=== PATIENT | male | born 1990 | race Caucasian/White ===

== ENCOUNTER 2021-04-13 14:58 | Inpatient (IN) | payer MEDICAID ==
[~2021-04-13] VITALS: Ht 185.4 cm; Wt 75.3 kg
[2021-04-13] MEDS ORDERED: QUET25TA PO (15:58)
[2021-04-13] MEDS ORDERED: GABA-1181 PO (15:58)
[2021-04-13] MEDS ORDERED: SERT-162 PO (15:58)
[2021-04-13] MEDS ORDERED: CLON0.1T2 PO (15:58)
[2021-04-13] MEDS ORDERED: CloNIDine HCL 0.1 MG TABLET PO PRN (16:45)
[2021-04-13] MEDS ORDERED: QUEtiapine FUMARATE 100 MG TABLET PO PRN (16:45)
[2021-04-13] MEDS ORDERED: MAG HYDROX/AL HYDROX/SIMETH ES 30 ML SUSPENSION UDCUP PO PRN (16:45)
[2021-04-13] MEDS ORDERED: MAGNESIUM HYDROXIDE SUSPENSION 30 ML UDCUP PO PRN (16:45)
[2021-04-13] MEDS ORDERED: CloNIDine HCL 0.1 MG TABLET PO SCH (17:00)
[2021-04-13 19:45] VITALS: BP 106/66
[2021-04-13] MEDS ORDERED: INFLUENZA VIRUS VACCINE QVS 2021-22 (6MO+)/PF 60 MCG/0.5 ML SYRINGE IM. ONE (20:00)
[2021-04-13 20:45] VITALS: BP 96/64
[2021-04-13 20:47] VITALS: BP 102/62
[2021-04-13] MEDS ORDERED: MIRTAZAPINE 15 MG TABLET PO SCH (21:00)
[2021-04-13] MEDS: DIAZEPAM 5 MG TABLET PO PRN (21:02)
[2021-04-13] MEDS: MELATONIN 5 MG TABLET PO SCH (21:02)
[2021-04-13] MEDS: GABAPENTIN 300 MG CAPSULE PO SCH (21:02)
[2021-04-13] MEDS: ACAMPROSATE CALCIUM 333 MG DR TABLET PO SCH (21:02)
[2021-04-13] MEDS: ACETAMINOPHEN 325 MG TABLET PO PRN (21:03)
[2021-04-13 21:45] VITALS: BP 96/59
[2021-04-14] VITALS (9 sets, daily range): BP systolic 89–131; BP diastolic 57–84
[2021-04-14] MEDS: DIAZEPAM 5 MG TABLET PO PRN ×2 (07:13→16:04)
[2021-04-14] MEDS: MAG HYDROX/AL HYDROX/SIMETH ES 30 ML SUSPENSION UDCUP PO PRN (07:13)
[2021-04-14 07:43] LABS: BASOPHILS % (AUTO) 0.4 % (0.0-2.0); EOSINOPHILS % (AUTO) 3.7 % (1.0-6.0); HEMOGLOBIN 11.6 g/dL (13.5-17.5); LYMPHOCYTES # (AUTO) 1.8 K/uL (1.0-4.8); LYMPHOCYTES % (AUTO) 31.9 % (22.0-44.0); MEAN CORPUSCULAR HEMOGLOBIN 28.5 pg (26.0-34.0); MEAN CORPUSCULAR HGB CONC 33.2 G/dL (31.0-37.0); MEAN CORPUSCULAR VOLUME 86 fL (80-100); MONOCYTES # (AUTO) 0.7 K/uL (0.1-1.0); NEUTROPHILS # (AUTO) 2.9 K/uL (1.8-7.7); PLATELET COUNT (AUTO) 220 K/uL (150-450); RED BLOOD CELL COUNT(AUTO) 4.07 MIL/uL (4.50-5.90); RED CELL DISTRIBUTION WIDTH 13.9 % (11.5-14.5)
[2021-04-14 07:58] LABS: HEMOGLOBIN A1C 5.7 % (3.8-5.6)
[2021-04-14 08:15] LABS: ALANINE AMINOTRANSFERASE 32 U/L (12-78); ALBUMIN 3.2 g/dL (3.4-5.0); ALKALINE PHOSPHATASE 99 U/L (46-116); ANION GAP 8 mmol/L (8-16); ASPARTATE AMINOTRANSFERASE 36 U/L (15-37); BILIRUBIN,TOTAL 0.1 mg/dL (0.1-1.0); CALCIUM, TOTAL 8.6 mg/dL (8.8-10.5); CARBON DIOXIDE 32 mmol/L (22-29); CHLORIDE 104 mmol/L (98-107); CHOLESTEROL 176 mg/dL (131-200); CREATININE 0.71 mg/dL (0.60-1.30); GLOMERULAR FILTR. RATE CALC > 60 mL/min (>60); GLUCOSE,RANDOM 83 mg/dL (70-110); HDL CHOLESTEROL 22 mg/dL (40-60); LDL CHOL (CALC.) 112 mg/dL (0-130); POTASSIUM 3.7 mmol/L (3.5-5.1); SODIUM SERUM 144 mmol/L (136-145); THYROID STIMULATING HORMONE 2.84 uIU/mL (0.36-3.74); TOTAL PROTEIN, SERUM 7.3 g/dL (6.4-8.2); TRIGLYCERIDES 210 mg/dL (15-150); UREA NITROGEN, BLOOD 15 mg/dL (7-18)
[2021-04-14] MEDS: ACAMPROSATE CALCIUM 333 MG DR TABLET PO SCH ×3 (08:49→16:04)
[2021-04-14] MEDS: GABAPENTIN 300 MG CAPSULE PO SCH ×4 (08:49→20:19)
[2021-04-14] MEDS: OMEGA-3/DHA/EPA/FISH OIL 1,000 MG CAPSULE PO SCH (08:49)
[2021-04-14] MEDS: QUEtiapine FUMARATE 25 MG TABLET PO SCH ×2 (08:49→12:38)
[2021-04-14] MEDS ORDERED: SERTRALINE HCL 100 MG TABLET PO SCH (09:00)
[2021-04-14] MEDS: METHADONE HCL 10 MG TABLET PO SCH (09:52)
[2021-04-14] MEDS: NICOTINE 21 MG/24 HOUR PATCH TD SCH (17:40)
[2021-04-14] MEDS: MELATONIN 5 MG TABLET PO SCH (20:18)
[2021-04-14] MEDS ORDERED: OLANZapine 5 MG RAPDIS TABLET PO SCH (21:00)
[2021-04-14] MEDS ORDERED: DULoxetine HCL 20 MG CAPSULE PO SCH (21:00)
[2021-04-15 00:47] VITALS: BP 106/61
[2021-04-15 00:49] VITALS: BP 102/63
[2021-04-15 07:30] LABS: APPEARANCE,URINE TURBID (CLEAR); BILIRUBIN,URINE NEGATIVE (NEGATIVE); GLUCOSE, URINE (UA) NEGATIVE (NEGATIVE); KETONES,URINE NEGATIVE (NEGATIVE); LEUKOCYTE ESTERASE ,URINE NEGATIVE (NEGATIVE); NITRATE,URINE NEGATIVE (NEGATIVE); OCCULT BLOOD,URINE NEGATIVE (NEGATIVE); PROTEIN,URINE NEGATIVE (NEGATIVE); UROBILINOGEN,URINE 0.2 mg/dL (<=1.0)
[2021-04-15 07:33] LABS: AMPHET/METH SCREEN,URINE NEGATIVE (NEGATIVE); BARBITURATE SCREEN, URINE NEGATIVE (NEGATIVE); BENZODIAZEPINES SCREEN,URINE POSITIVE (NEGATIVE); CANNABINOID SCREEN,URINE POSITIVE (NEGATIVE); COCAINE SCREEN,URINE NEGATIVE (NEGATIVE); METHADONE SCREEN, URINE POSITIVE (NEGATIVE); OPIATE SCREEN,URINE NEGATIVE (NEGATIVE)
[2021-04-15 07:36] LABS: PHENCYCLIDINE SCREEN,URINE NEGATIVE (NEGATIVE)
[2021-04-15 08:58] VITALS: BP 136/87
[2021-04-15 09:19] VITALS: BP 98/65
[2021-04-15] MEDS: ACAMPROSATE CALCIUM 333 MG DR TABLET PO SCH ×3 (09:24→17:13)
[2021-04-15] MEDS: OMEGA-3/DHA/EPA/FISH OIL 1,000 MG CAPSULE PO SCH (09:24)
[2021-04-15] MEDS: GABAPENTIN 300 MG CAPSULE PO SCH ×4 (09:24→21:15)
[2021-04-15] MEDS: METHADONE HCL 10 MG TABLET PO SCH (09:24)
[2021-04-15] MEDS: NICOTINE 21 MG/24 HOUR PATCH TD SCH (09:25)
[2021-04-15] MEDS: DIAZEPAM 5 MG TABLET PO PRN ×3 (09:35→19:04)
[2021-04-15] MEDS: OLANZapine 5 MG RAPDIS TABLET PO PRN (13:02)
[2021-04-15] MEDS ORDERED: GABAPENTIN 300 MG CAPSULE PO PRN (15:00)
[2021-04-15 16:18] VITALS: BP 106/71
[2021-04-15] MEDS: QUEtiapine FUMARATE 25 MG TABLET PO SCH (17:13)
[2021-04-15] MEDS: IBUPROFEN 600 MG TABLET PO PRN (20:21)
[2021-04-15] MEDS: OLANZapine 5 MG RAPDIS TABLET PO SCH (21:15)
[2021-04-15] MEDS: DULoxetine HCL 30 MG CAPSULE PO SCH (21:15)
[2021-04-15] MEDS: MELATONIN 5 MG TABLET PO SCH (21:15)
[2021-04-16 05:22] VITALS: BP 115/76
[2021-04-16 05:56] VITALS: BP 115/76
[2021-04-16 08:28] VITALS: BP 125/83
[2021-04-16 08:30] VITALS: BP 124/74
[2021-04-16] MEDS: NICOTINE 21 MG/24 HOUR PATCH TD SCH (09:07)
[2021-04-16] MEDS: QUEtiapine FUMARATE 25 MG TABLET PO SCH ×3 (09:08→16:19)
[2021-04-16] MEDS: ACAMPROSATE CALCIUM 333 MG DR TABLET PO SCH ×3 (09:08→16:19)
[2021-04-16] MEDS: GABAPENTIN 300 MG CAPSULE PO SCH ×4 (09:08→20:03)
[2021-04-16] MEDS: OMEGA-3/DHA/EPA/FISH OIL 1,000 MG CAPSULE PO SCH (09:08)
[2021-04-16] MEDS: METHADONE HCL 10 MG TABLET PO SCH (09:09)
[2021-04-16] MEDS: DIAZEPAM 5 MG TABLET PO PRN ×3 (09:30→20:03)
[2021-04-16 16:13] VITALS: BP 113/77
[2021-04-16] MEDS: ACETAMINOPHEN 325 MG TABLET PO PRN (16:41)
[2021-04-16] MEDS: OLANZapine 5 MG RAPDIS TABLET PO PRN (16:41)
[2021-04-16] MEDS: MELATONIN 5 MG TABLET PO SCH (20:02)
[2021-04-16] MEDS: DULoxetine HCL 30 MG CAPSULE PO SCH (20:03)
[2021-04-16] MEDS: OLANZapine 5 MG RAPDIS TABLET PO SCH (20:03)
[2021-04-17 00:58] VITALS: BP 119/82
[2021-04-17 05:50] VITALS: BP 119/82
[2021-04-17 08:05] VITALS: BP 140/85
[2021-04-17 08:33] VITALS: BP 133/87
[2021-04-17] MEDS: ACAMPROSATE CALCIUM 333 MG DR TABLET PO SCH ×3 (08:51→16:25)
[2021-04-17] MEDS: QUEtiapine FUMARATE 25 MG TABLET PO SCH ×3 (08:51→16:28)
[2021-04-17] MEDS: GABAPENTIN 300 MG CAPSULE PO SCH ×4 (08:51→20:02)
[2021-04-17] MEDS: METHADONE HCL 10 MG TABLET PO SCH (08:52)
[2021-04-17] MEDS: OMEGA-3/DHA/EPA/FISH OIL 1,000 MG CAPSULE PO SCH (08:53)
[2021-04-17] MEDS: NICOTINE 21 MG/24 HOUR PATCH TD SCH (09:02)
[2021-04-17] MEDS: ACETAMINOPHEN 325 MG TABLET PO PRN (10:43)
[2021-04-17] MEDS: DIAZEPAM 5 MG TABLET PO PRN ×3 (10:43→21:38)
[2021-04-17] MEDS: IBUPROFEN 600 MG TABLET PO PRN (13:38)
[2021-04-17 16:26] VITALS: BP 120/79
[2021-04-17] MEDS: GABAPENTIN 100 MG CAPSULE PO SCH ×2 (16:27→20:02)
[2021-04-17 17:29] VITALS: BP 126/85
[2021-04-17] MEDS: MELATONIN 5 MG TABLET PO SCH (20:02)
[2021-04-17] MEDS: DULoxetine HCL 30 MG CAPSULE PO SCH (20:02)
[2021-04-17] MEDS: OLANZapine 10 MG RAPDIS TABLET PO SCH (20:02)
[2021-04-17] MEDS: NICOTINE POLACRILEX 2 MG LOZENGE PO PRN (20:25)
[2021-04-17] MEDS: MAG HYDROX/AL HYDROX/SIMETH ES 30 ML SUSPENSION UDCUP PO PRN (23:37)
[2021-04-18 00:36] VITALS: BP 121/79
[2021-04-18 00:37] VITALS: BP 121/79
[2021-04-18 07:22] LABS: COVID AG,FIA SOURCE NASOPHARYNGEAL
[2021-04-18 08:33] VITALS: BP 111/69
[2021-04-18] MEDS: OMEGA-3/DHA/EPA/FISH OIL 1,000 MG CAPSULE PO SCH (08:46)
[2021-04-18] MEDS: ACAMPROSATE CALCIUM 333 MG DR TABLET PO SCH ×3 (08:47→16:30)
[2021-04-18] MEDS: QUEtiapine FUMARATE 25 MG TABLET PO SCH ×3 (08:47→16:30)
[2021-04-18] MEDS: GABAPENTIN 100 MG CAPSULE PO SCH ×4 (08:47→20:36)
[2021-04-18] MEDS: GABAPENTIN 300 MG CAPSULE PO SCH ×4 (08:47→20:37)
[2021-04-18] MEDS: METHADONE HCL 10 MG TABLET PO SCH (08:48)
[2021-04-18] MEDS: DIAZEPAM 5 MG TABLET PO PRN ×2 (10:15→16:29)
[2021-04-18] MEDS: NICOTINE POLACRILEX 2 MG LOZENGE PO PRN ×3 (12:32→20:37)
[2021-04-18 16:32] VITALS: BP 110/74
[2021-04-18] MEDS: DULoxetine HCL 30 MG CAPSULE PO SCH (20:36)
[2021-04-18] MEDS: MELATONIN 5 MG TABLET PO SCH (20:36)
[2021-04-18] MEDS: OLANZapine 10 MG RAPDIS TABLET PO SCH (20:37)
[2021-04-19 00:22] VITALS: BP 122/85
[2021-04-19] MEDS: OMEGA-3/DHA/EPA/FISH OIL 1,000 MG CAPSULE PO SCH (08:41)
[2021-04-19] MEDS: QUEtiapine FUMARATE 25 MG TABLET PO SCH ×3 (08:41→16:37)
[2021-04-19 08:42] VITALS: BP 118/76
[2021-04-19] MEDS: METHADONE HCL 10 MG TABLET PO SCH (08:42)
[2021-04-19] MEDS: GABAPENTIN 300 MG CAPSULE PO SCH ×4 (08:42→20:15)
[2021-04-19] MEDS: GABAPENTIN 100 MG CAPSULE PO SCH ×4 (08:42→20:15)
[2021-04-19] MEDS: ACAMPROSATE CALCIUM 333 MG DR TABLET PO SCH ×3 (08:42→16:36)
[2021-04-19] MEDS: IBUPROFEN 600 MG TABLET PO PRN ×2 (09:44→20:16)
[2021-04-19] MEDS: NICOTINE POLACRILEX 2 MG LOZENGE PO PRN ×2 (09:44→12:48)
[2021-04-19] MEDS: DIAZEPAM 5 MG TABLET PO PRN ×2 (09:53→16:36)
[2021-04-19] MEDS: OLANZapine 5 MG RAPDIS TABLET PO PRN (13:35)
[2021-04-19 16:16] VITALS: BP 109/71
[2021-04-19] MEDS: ACETAMINOPHEN 325 MG TABLET PO PRN (16:35)
[2021-04-19] MEDS: OLANZapine 10 MG RAPDIS TABLET PO SCH (20:15)
[2021-04-19] MEDS: DULoxetine HCL 30 MG CAPSULE PO SCH (20:15)
[2021-04-19] MEDS: MELATONIN 5 MG TABLET PO SCH (20:15)
[2021-04-19 20:16] VITALS: BP 135/90
[2021-04-20 01:07] VITALS: BP 128/82
[2021-04-20 08:37] VITALS: BP 128/88
[2021-04-20] MEDS: GABAPENTIN 300 MG CAPSULE PO SCH ×2 (09:23→12:46)
[2021-04-20] MEDS: ACAMPROSATE CALCIUM 333 MG DR TABLET PO SCH ×3 (09:23→17:37)
[2021-04-20] MEDS: QUEtiapine FUMARATE 25 MG TABLET PO SCH ×3 (09:24→17:36)
[2021-04-20] MEDS: OMEGA-3/DHA/EPA/FISH OIL 1,000 MG CAPSULE PO SCH (09:24)
[2021-04-20] MEDS: METHADONE HCL 10 MG TABLET PO SCH (09:25)
[2021-04-20] MEDS: IBUPROFEN 600 MG TABLET PO PRN ×2 (09:29→17:56)
[2021-04-20] MEDS: GABAPENTIN 100 MG CAPSULE PO SCH ×2 (10:52→12:36)
[2021-04-20] MEDS: NICOTINE POLACRILEX 2 MG LOZENGE PO PRN ×3 (10:57→20:06)
[2021-04-20] MEDS: DIAZEPAM 5 MG TABLET PO PRN (10:57)
[2021-04-20] MEDS: HydrOXYzine PAMOATE 50 MG CAPSULE PO PRN (16:18)
[2021-04-20 16:30] VITALS: BP 126/78
[2021-04-20] MEDS: GABAPENTIN 400 MG CAPSULE PO SCH (17:36)
[2021-04-20] MEDS: ACETAMINOPHEN 325 MG TABLET PO PRN (19:11)
[2021-04-20] MEDS: QUEtiapine FUMARATE 200 MG TABLET PO SCH (20:06)
[2021-04-20] MEDS: MELATONIN 5 MG TABLET PO SCH (20:06)
[2021-04-20] MEDS: DULoxetine HCL 60 MG CAPSULE PO SCH (20:06)
[2021-04-20] MEDS: ZOLPIDEM TARTRATE 10 MG TABLET PO PRN (22:00)
[2021-04-21 00:23] VITALS: BP 116/71
[2021-04-21 04:03] VITALS: BP 122/88
[2021-04-21] MEDS: IBUPROFEN 600 MG TABLET PO PRN ×2 (04:08→15:00)
[2021-04-21 08:28] VITALS: BP 115/74
[2021-04-21] MEDS: METHADONE HCL 10 MG TABLET PO SCH (09:11)
[2021-04-21] MEDS: ACAMPROSATE CALCIUM 333 MG DR TABLET PO SCH ×3 (09:13→16:54)
[2021-04-21] MEDS: GABAPENTIN 400 MG CAPSULE PO SCH ×3 (09:13→15:58)
[2021-04-21] MEDS: QUEtiapine FUMARATE 25 MG TABLET PO SCH ×3 (09:18→15:58)
[2021-04-21] MEDS: OMEGA-3/DHA/EPA/FISH OIL 1,000 MG CAPSULE PO SCH (09:20)
[2021-04-21] MEDS: HydrOXYzine PAMOATE 50 MG CAPSULE PO PRN ×2 (10:30→15:59)
[2021-04-21] MEDS: NICOTINE POLACRILEX 2 MG LOZENGE PO PRN ×3 (15:00→23:54)
[2021-04-21 16:16] VITALS: BP 114/71
[2021-04-21] MEDS: MAG HYDROX/AL HYDROX/SIMETH ES 30 ML SUSPENSION UDCUP PO PRN ×2 (17:46→22:01)
[2021-04-21] MEDS: MELATONIN 5 MG TABLET PO SCH (21:00)
[2021-04-21] MEDS: ZOLPIDEM TARTRATE 10 MG TABLET PO PRN (21:04)
[2021-04-21] MEDS: QUEtiapine FUMARATE 200 MG TABLET PO SCH (21:04)
[2021-04-21] MEDS: DULoxetine HCL 60 MG CAPSULE PO SCH (21:04)
[2021-04-21] MEDS ORDERED: HydrOXYzine PAMOATE 50 MG CAPSULE PO PRN (21:30)
[2021-04-22] MEDS: QUEtiapine FUMARATE 100 MG TABLET PO PRN ×2 (00:58→14:57)
[2021-04-22] MEDS: IBUPROFEN 600 MG TABLET PO PRN ×3 (02:45→19:47)
[2021-04-22 03:31] VITALS: BP 114/78
[2021-04-22] MEDS: METHADONE HCL 10 MG TABLET PO SCH (08:19)
[2021-04-22] MEDS: OMEGA-3/DHA/EPA/FISH OIL 1,000 MG CAPSULE PO SCH (08:19)
[2021-04-22] MEDS: HydrOXYzine PAMOATE 50 MG CAPSULE PO SCH ×4 (08:19→20:56)
[2021-04-22] MEDS: ACAMPROSATE CALCIUM 333 MG DR TABLET PO SCH ×3 (08:19→16:12)
[2021-04-22] MEDS: GABAPENTIN 400 MG CAPSULE PO SCH ×3 (08:19→16:13)
[2021-04-22] MEDS: QUEtiapine FUMARATE 25 MG TABLET PO SCH ×3 (08:20→16:13)
[2021-04-22 08:21] VITALS: BP 116/72
[2021-04-22] MEDS: LOPERAMIDE HCL 2 MG CAPSULE PO PRN (08:21)
[2021-04-22] MEDS: NICOTINE POLACRILEX 2 MG LOZENGE PO PRN ×4 (10:38→20:57)
[2021-04-22 16:24] VITALS: BP 108/65
[2021-04-22] MEDS: ACETAMINOPHEN 325 MG TABLET PO PRN (17:41)
[2021-04-22 19:47] VITALS: BP 128/82
[2021-04-22] MEDS: DULoxetine HCL 60 MG CAPSULE PO SCH (20:56)
[2021-04-22] MEDS: ZOLPIDEM TARTRATE 10 MG TABLET PO PRN (20:56)
[2021-04-22] MEDS: MELATONIN 5 MG TABLET PO SCH (20:56)
[2021-04-22] MEDS ORDERED: QUEtiapine FUMARATE 200 MG TABLET PO SCH (21:00)
[2021-04-23 01:04] VITALS: BP 120/78
[2021-04-23 02:28] VITALS: BP 125/80
[2021-04-23] MEDS: IBUPROFEN 600 MG TABLET PO PRN ×2 (02:32→12:23)
[2021-04-23] MEDS: HydrOXYzine PAMOATE 50 MG CAPSULE PO SCH ×4 (08:13→20:03)
[2021-04-23] MEDS: METHADONE HCL 10 MG TABLET PO SCH (08:13)
[2021-04-23] MEDS: GABAPENTIN 400 MG CAPSULE PO SCH ×3 (08:13→16:29)
[2021-04-23] MEDS: NICOTINE POLACRILEX 2 MG LOZENGE PO PRN ×4 (08:14→20:03)
[2021-04-23] MEDS: ACAMPROSATE CALCIUM 333 MG DR TABLET PO SCH ×3 (08:14→16:29)
[2021-04-23] MEDS: QUEtiapine FUMARATE 100 MG TABLET PO PRN (08:14)
[2021-04-23] MEDS: OMEGA-3/DHA/EPA/FISH OIL 1,000 MG CAPSULE PO SCH (08:14)
[2021-04-23 08:15] VITALS: BP 118/76
[2021-04-23] MEDS: QUEtiapine FUMARATE 25 MG TABLET PO SCH ×3 (08:15→16:29)
[2021-04-23 12:23] VITALS: BP 122/75
[2021-04-23] MEDS: ACETAMINOPHEN 325 MG TABLET PO PRN (15:40)
[2021-04-23 18:13] VITALS: BP 120/80
[2021-04-23] MEDS: DULoxetine HCL 60 MG CAPSULE PO SCH (20:03)
[2021-04-23] MEDS: MELATONIN 5 MG TABLET PO SCH (20:03)
[2021-04-23] MEDS: QUEtiapine FUMARATE 300 MG TABLET PO SCH (20:03)
[2021-04-23] MEDS: ZOLPIDEM TARTRATE 10 MG TABLET PO PRN (20:05)
[2021-04-24 02:27] VITALS: BP 116/76
[2021-04-24] MEDS: MAG HYDROX/AL HYDROX/SIMETH ES 30 ML SUSPENSION UDCUP PO PRN (02:28)
[2021-04-24] MEDS: GABAPENTIN 400 MG CAPSULE PO SCH ×3 (08:18→16:08)
[2021-04-24] MEDS: HydrOXYzine PAMOATE 50 MG CAPSULE PO SCH ×4 (08:18→20:13)
[2021-04-24] MEDS: OMEGA-3/DHA/EPA/FISH OIL 1,000 MG CAPSULE PO SCH (08:18)
[2021-04-24] MEDS: LOPERAMIDE HCL 2 MG CAPSULE PO PRN ×3 (08:19→20:50)
[2021-04-24] MEDS: ACAMPROSATE CALCIUM 333 MG DR TABLET PO SCH ×3 (08:19→16:08)
[2021-04-24] MEDS: METHADONE HCL 10 MG TABLET PO SCH (08:19)
[2021-04-24] MEDS: QUEtiapine FUMARATE 25 MG TABLET PO SCH ×3 (08:19→16:08)
[2021-04-24 08:38] VITALS: BP 117/80
[2021-04-24] MEDS: NICOTINE POLACRILEX 2 MG LOZENGE PO PRN ×2 (10:17→21:52)
[2021-04-24 16:39] VITALS: BP 105/68
[2021-04-24] MEDS: MELATONIN 5 MG TABLET PO SCH (20:13)
[2021-04-24] MEDS: DULoxetine HCL 60 MG CAPSULE PO SCH (20:13)
[2021-04-24] MEDS: QUEtiapine FUMARATE 300 MG TABLET PO SCH (20:13)
[2021-04-24] MEDS: ZOLPIDEM TARTRATE 10 MG TABLET PO PRN (21:52)
[2021-04-25 00:55] VITALS: BP 100/71
[2021-04-25] MEDS: LOPERAMIDE HCL 2 MG CAPSULE PO PRN ×4 (04:17→21:05)
[2021-04-25 07:33] LABS: COVID AG,FIA SOURCE NASOPHARYNGEAL
[2021-04-25 08:14] VITALS: BP 108/75
[2021-04-25] MEDS: OMEGA-3/DHA/EPA/FISH OIL 1,000 MG CAPSULE PO SCH (08:21)
[2021-04-25] MEDS: GABAPENTIN 400 MG CAPSULE PO SCH ×3 (08:21→16:51)
[2021-04-25] MEDS: QUEtiapine FUMARATE 25 MG TABLET PO SCH ×3 (08:21→16:51)
[2021-04-25] MEDS: HydrOXYzine PAMOATE 50 MG CAPSULE PO SCH ×4 (08:21→20:04)
[2021-04-25] MEDS: METHADONE HCL 10 MG TABLET PO SCH (08:22)
[2021-04-25] MEDS: ACAMPROSATE CALCIUM 333 MG DR TABLET PO SCH ×3 (08:22→16:51)
[2021-04-25] MEDS: IBUPROFEN 600 MG TABLET PO PRN (14:22)
[2021-04-25] MEDS: NICOTINE POLACRILEX 2 MG LOZENGE PO PRN (14:22)
[2021-04-25 16:29] VITALS: BP 102/62
[2021-04-25] MEDS: DIPHENOXYLATE/ATROP 2.5-0.025 MG TABLET PO PRN (18:16)
[2021-04-25] MEDS: MELATONIN 5 MG TABLET PO SCH (20:04)
[2021-04-25] MEDS: QUEtiapine FUMARATE 300 MG TABLET PO SCH (20:04)
[2021-04-25] MEDS: DULoxetine HCL 60 MG CAPSULE PO SCH (20:04)
[2021-04-25] MEDS: ZOLPIDEM TARTRATE 10 MG TABLET PO PRN (21:04)
[2021-04-26 02:50] VITALS: BP 109/75
[2021-04-26] MEDS: IBUPROFEN 600 MG TABLET PO PRN ×2 (02:55→18:42)
[2021-04-26] MEDS: QUEtiapine FUMARATE 100 MG TABLET PO PRN ×3 (02:55→18:42)
[2021-04-26] MEDS: QUEtiapine FUMARATE 25 MG TABLET PO SCH ×3 (08:13→16:03)
[2021-04-26] MEDS: OMEGA-3/DHA/EPA/FISH OIL 1,000 MG CAPSULE PO SCH (08:13)
[2021-04-26] MEDS: HydrOXYzine PAMOATE 50 MG CAPSULE PO SCH ×4 (08:13→20:31)
[2021-04-26] MEDS: GABAPENTIN 400 MG CAPSULE PO SCH ×3 (08:13→16:03)
[2021-04-26] MEDS: METHADONE HCL 10 MG TABLET PO SCH (08:13)
[2021-04-26] MEDS: ACAMPROSATE CALCIUM 333 MG DR TABLET PO SCH ×3 (08:13→16:03)
[2021-04-26] MEDS: LOPERAMIDE HCL 2 MG CAPSULE PO PRN (08:14)
[2021-04-26] MEDS: NICOTINE POLACRILEX 2 MG LOZENGE PO PRN ×3 (08:18→16:04)
[2021-04-26 09:52] VITALS: BP 98/62
[2021-04-26 16:24] VITALS: BP 111/74
[2021-04-26] MEDS: QUEtiapine FUMARATE 300 MG TABLET PO SCH (20:30)
[2021-04-26] MEDS: DULoxetine HCL 60 MG CAPSULE PO SCH (20:31)
[2021-04-26] MEDS: MELATONIN 5 MG TABLET PO SCH (20:31)
[2021-04-26] MEDS: ZOLPIDEM TARTRATE 10 MG TABLET PO PRN (20:38)
[2021-04-27 01:11] VITALS: BP 115/70
[2021-04-27] MEDS: IBUPROFEN 600 MG TABLET PO PRN (08:52)
[2021-04-27] MEDS: NICOTINE POLACRILEX 2 MG LOZENGE PO PRN ×2 (08:52→11:32)
[2021-04-27 08:54] VITALS: BP 113/79
[2021-04-27] MEDS: GABAPENTIN 400 MG CAPSULE PO SCH ×3 (08:54→16:17)
[2021-04-27] MEDS: HydrOXYzine PAMOATE 50 MG CAPSULE PO SCH ×4 (08:54→20:39)
[2021-04-27] MEDS: ACAMPROSATE CALCIUM 333 MG DR TABLET PO SCH ×3 (08:55→16:17)
[2021-04-27] MEDS: OMEGA-3/DHA/EPA/FISH OIL 1,000 MG CAPSULE PO SCH (08:55)
[2021-04-27] MEDS: QUEtiapine FUMARATE 25 MG TABLET PO SCH ×3 (08:55→16:17)
[2021-04-27] MEDS: METHADONE HCL 10 MG TABLET PO SCH (08:56)
[2021-04-27] MEDS: LOPERAMIDE HCL 2 MG CAPSULE PO PRN ×3 (10:15→18:26)
[2021-04-27] MEDS: QUEtiapine FUMARATE 100 MG TABLET PO PRN (11:31)
[2021-04-27 16:21] VITALS: BP 113/70
[2021-04-27] MEDS: DIPHENOXYLATE/ATROP 2.5-0.025 MG TABLET PO PRN (16:21)
[2021-04-27] MEDS: ACETAMINOPHEN 325 MG TABLET PO PRN (18:08)
[2021-04-27] MEDS: ZOLPIDEM TARTRATE 10 MG TABLET PO PRN (20:35)
[2021-04-27] MEDS: QUEtiapine FUMARATE 300 MG TABLET PO SCH (20:35)
[2021-04-27] MEDS: DULoxetine HCL 60 MG CAPSULE PO SCH (20:35)
[2021-04-27] MEDS: MELATONIN 5 MG TABLET PO SCH (20:35)
[2021-04-28 00:24] VITALS: BP 110/71
[2021-04-28] MEDS: LOPERAMIDE HCL 2 MG CAPSULE PO PRN ×3 (03:34→20:24)
[2021-04-28] MEDS: QUEtiapine FUMARATE 100 MG TABLET PO PRN (03:34)
[2021-04-28] MEDS: GABAPENTIN 100 MG CAPSULE PO SCH ×3 (08:16→16:14)
[2021-04-28] MEDS: GABAPENTIN 400 MG CAPSULE PO SCH ×3 (08:16→16:14)
[2021-04-28] MEDS: METHADONE HCL 10 MG TABLET PO SCH (08:16)
[2021-04-28] MEDS: ACAMPROSATE CALCIUM 333 MG DR TABLET PO SCH ×3 (08:16→16:15)
[2021-04-28] MEDS: QUEtiapine FUMARATE 25 MG TABLET PO SCH ×3 (08:17→16:15)
[2021-04-28] MEDS: HydrOXYzine PAMOATE 50 MG CAPSULE PO SCH ×4 (08:17→20:25)
[2021-04-28] MEDS: OMEGA-3/DHA/EPA/FISH OIL 1,000 MG CAPSULE PO SCH (08:17)
[2021-04-28 08:42] VITALS: BP 124/80
[2021-04-28] MEDS ORDERED: GABAPENTIN 400 MG CAPSULE PO SCH (09:00)
[2021-04-28] MEDS: NICOTINE POLACRILEX 2 MG LOZENGE PO PRN (09:29)
[2021-04-28] MEDS: DIPHENOXYLATE/ATROP 2.5-0.025 MG TABLET PO PRN (09:45)
[2021-04-28 16:30] VITALS: BP 114/74
[2021-04-28] MEDS: MELATONIN 5 MG TABLET PO SCH (20:24)
[2021-04-28] MEDS: DULoxetine HCL 20 MG CAPSULE PO SCH (20:25)
[2021-04-28] MEDS: QUEtiapine FUMARATE 300 MG TABLET PO SCH (20:25)
[2021-04-28] MEDS: ZOLPIDEM TARTRATE 10 MG TABLET PO PRN (21:38)
[2021-04-28] MEDS ORDERED: PREGABALIN 50 MG CAPSULE PO PRN (22:45)
[2021-04-29 01:08] VITALS: BP 111/73
[2021-04-29] MEDS: ACAMPROSATE CALCIUM 333 MG DR TABLET PO SCH ×3 (08:26→17:12)
[2021-04-29] MEDS: GABAPENTIN 400 MG CAPSULE PO SCH ×3 (08:26→17:11)
[2021-04-29] MEDS: OMEGA-3/DHA/EPA/FISH OIL 1,000 MG CAPSULE PO SCH (08:26)
[2021-04-29] MEDS: METHADONE HCL 10 MG TABLET PO SCH (08:26)
[2021-04-29] MEDS: GABAPENTIN 100 MG CAPSULE PO SCH ×3 (08:26→17:11)
[2021-04-29] MEDS: HALOPERIDOL 5 MG TABLET PO SCH ×3 (08:27→17:12)
[2021-04-29] MEDS: NICOTINE POLACRILEX 2 MG LOZENGE PO PRN ×3 (08:27→18:08)
[2021-04-29] MEDS: LOPERAMIDE HCL 2 MG CAPSULE PO PRN (08:28)
[2021-04-29 08:30] VITALS: BP 131/84
[2021-04-29] MEDS: HydrOXYzine PAMOATE 50 MG CAPSULE PO PRN ×2 (12:44→19:23)
[2021-04-29 16:43] VITALS: BP 130/70
[2021-04-29] MEDS: MELATONIN 5 MG TABLET PO SCH (20:17)
[2021-04-29] MEDS: DULoxetine HCL 20 MG CAPSULE PO SCH (20:17)
[2021-04-29] MEDS: ZOLPIDEM TARTRATE 10 MG TABLET PO PRN (20:17)
[2021-04-30 02:54] VITALS: BP 133/90
[2021-04-30] MEDS: HydrOXYzine PAMOATE 50 MG CAPSULE PO PRN ×2 (02:57→18:27)
[2021-04-30] MEDS: PREGABALIN 50 MG CAPSULE PO PRN (03:42)
[2021-04-30 08:32] VITALS: BP 142/90
[2021-04-30] MEDS: HALOPERIDOL 5 MG TABLET PO SCH ×3 (09:00→16:35)
[2021-04-30] MEDS: ACAMPROSATE CALCIUM 333 MG DR TABLET PO SCH ×3 (09:00→16:35)
[2021-04-30] MEDS: GABAPENTIN 400 MG CAPSULE PO SCH ×3 (09:04→16:35)
[2021-04-30] MEDS: METHADONE HCL 10 MG TABLET PO SCH (09:04)
[2021-04-30] MEDS: GABAPENTIN 100 MG CAPSULE PO SCH ×3 (09:05→16:36)
[2021-04-30] MEDS: OMEGA-3/DHA/EPA/FISH OIL 1,000 MG CAPSULE PO SCH (09:05)
[2021-04-30 10:09] LABS: GLUCOMETER DEV NAME(LOC) BV2S.; GLUCOSE,POINT OF CARE 143 MG/DL (70-110)
[2021-04-30] MEDS ORDERED: TRIHEXYPHENIDYL HCL 5 MG TABLET PO ONE (16:00)
[2021-04-30] MEDS ORDERED: HALOPERIDOL 5 MG TABLET PO PRN (16:00)
[2021-04-30 16:36] VITALS: BP 122/83
[2021-04-30] MEDS: MELATONIN 5 MG TABLET PO SCH (20:26)
[2021-04-30] MEDS: DULoxetine HCL 20 MG CAPSULE PO SCH (20:26)
[2021-04-30] MEDS: ZOLPIDEM TARTRATE 10 MG TABLET PO PRN (21:27)
[2021-04-30] MEDS: NICOTINE POLACRILEX 2 MG LOZENGE PO PRN (21:27)
[2021-05-01 00:42] VITALS: BP 130/79
[2021-05-01] MEDS: HydrOXYzine PAMOATE 50 MG CAPSULE PO PRN ×3 (01:43→16:32)
[2021-05-01 08:32] VITALS: BP 107/69
[2021-05-01] MEDS: OMEGA-3/DHA/EPA/FISH OIL 1,000 MG CAPSULE PO SCH (08:46)
[2021-05-01] MEDS: ACAMPROSATE CALCIUM 333 MG DR TABLET PO SCH ×3 (08:46→16:31)
[2021-05-01] MEDS: METHADONE HCL 10 MG TABLET PO SCH (08:46)
[2021-05-01] MEDS: TRIHEXYPHENIDYL HCL 5 MG TABLET PO SCH ×3 (08:46→16:30)
[2021-05-01] MEDS: GABAPENTIN 400 MG CAPSULE PO SCH ×3 (08:47→16:31)
[2021-05-01] MEDS: GABAPENTIN 100 MG CAPSULE PO SCH ×3 (08:47→16:31)
[2021-05-01] MEDS: HALOPERIDOL 5 MG TABLET PO SCH ×4 (09:00→20:25)
[2021-05-01] MEDS: NICOTINE POLACRILEX 2 MG LOZENGE PO PRN ×3 (10:04→21:23)
[2021-05-01 16:09] VITALS: BP 117/77
[2021-05-01] MEDS: PREGABALIN 50 MG CAPSULE PO PRN (18:46)
[2021-05-01] MEDS: MELATONIN 5 MG TABLET PO SCH (20:24)
[2021-05-01] MEDS: DULoxetine HCL 20 MG CAPSULE PO SCH (20:24)
[2021-05-01] MEDS: ZOLPIDEM TARTRATE 10 MG TABLET PO PRN (20:32)
[2021-05-02 00:25] VITALS: BP 125/82
[2021-05-02] MEDS: HydrOXYzine PAMOATE 50 MG CAPSULE PO PRN ×3 (06:48→17:42)
[2021-05-02] MEDS: TRIHEXYPHENIDYL HCL 5 MG TABLET PO SCH ×3 (08:15→16:37)
[2021-05-02] MEDS: GABAPENTIN 400 MG CAPSULE PO SCH ×3 (08:15→16:36)
[2021-05-02] MEDS: HALOPERIDOL 5 MG TABLET PO SCH ×4 (08:15→20:14)
[2021-05-02] MEDS: OMEGA-3/DHA/EPA/FISH OIL 1,000 MG CAPSULE PO SCH (08:15)
[2021-05-02] MEDS: GABAPENTIN 100 MG CAPSULE PO SCH ×3 (08:15→16:36)
[2021-05-02] MEDS: ACAMPROSATE CALCIUM 333 MG DR TABLET PO SCH ×3 (08:16→16:36)
[2021-05-02] MEDS: METHADONE HCL 10 MG TABLET PO SCH (08:16)
[2021-05-02 08:25] VITALS: BP 130/92
[2021-05-02 09:40] LABS: COVID AG,FIA SOURCE NASOPHARYNGEAL
[2021-05-02] MEDS: NICOTINE POLACRILEX 2 MG LOZENGE PO PRN ×3 (12:52→20:12)
[2021-05-02 16:27] VITALS: BP 101/64
[2021-05-02] MEDS: DULoxetine HCL 20 MG CAPSULE PO SCH (20:12)
[2021-05-02] MEDS: ZOLPIDEM TARTRATE 10 MG TABLET PO PRN (20:12)
[2021-05-02] MEDS: MELATONIN 5 MG TABLET PO SCH (20:12)
[2021-05-02] MEDS: QUEtiapine FUMARATE 100 MG TABLET PO PRN (21:20)
[2021-05-03 00:08] VITALS: BP 112/65
[2021-05-03] MEDS: QUEtiapine FUMARATE 100 MG TABLET PO PRN ×3 (05:58→18:22)
[2021-05-03 08:14] VITALS: BP 125/79
[2021-05-03] MEDS: METHADONE HCL 10 MG TABLET PO SCH (08:40)
[2021-05-03] MEDS: OMEGA-3/DHA/EPA/FISH OIL 1,000 MG CAPSULE PO SCH (08:41)
[2021-05-03] MEDS: TRIHEXYPHENIDYL HCL 5 MG TABLET PO SCH ×3 (08:42→17:13)
[2021-05-03] MEDS: ACAMPROSATE CALCIUM 333 MG DR TABLET PO SCH ×3 (08:42→17:12)
[2021-05-03] MEDS: GABAPENTIN 100 MG CAPSULE PO SCH ×3 (08:42→17:12)
[2021-05-03] MEDS: GABAPENTIN 400 MG CAPSULE PO SCH ×3 (08:42→17:12)
[2021-05-03] MEDS: HALOPERIDOL 5 MG TABLET PO SCH ×4 (08:44→20:13)
[2021-05-03] MEDS: NICOTINE POLACRILEX 2 MG LOZENGE PO PRN ×3 (11:28→20:49)
[2021-05-03 16:04] VITALS: BP 128/73
[2021-05-03] MEDS: DULoxetine HCL 20 MG CAPSULE PO SCH (20:11)
[2021-05-03] MEDS: ZOLPIDEM TARTRATE 10 MG TABLET PO PRN (20:11)
[2021-05-03] MEDS: MELATONIN 5 MG TABLET PO SCH (20:11)
[2021-05-03] MEDS: HydrOXYzine PAMOATE 50 MG CAPSULE PO PRN (21:34)
[2021-05-04 00:51] VITALS: BP 112/75
[2021-05-04] MEDS: QUEtiapine FUMARATE 100 MG TABLET PO PRN ×4 (01:05→22:23)
[2021-05-04 08:08] VITALS: BP 124/81
[2021-05-04] MEDS: ACAMPROSATE CALCIUM 333 MG DR TABLET PO SCH ×3 (08:32→16:19)
[2021-05-04] MEDS: METHADONE HCL 10 MG TABLET PO SCH (08:33)
[2021-05-04] MEDS: GABAPENTIN 100 MG CAPSULE PO SCH ×3 (08:33→16:19)
[2021-05-04] MEDS: GABAPENTIN 400 MG CAPSULE PO SCH ×3 (08:33→16:19)
[2021-05-04] MEDS: HALOPERIDOL 5 MG TABLET PO SCH ×4 (08:33→21:00)
[2021-05-04] MEDS: OMEGA-3/DHA/EPA/FISH OIL 1,000 MG CAPSULE PO SCH (08:33)
[2021-05-04] MEDS: TRIHEXYPHENIDYL HCL 5 MG TABLET PO SCH ×3 (08:33→16:19)
[2021-05-04] MEDS: NICOTINE POLACRILEX 2 MG LOZENGE PO PRN ×3 (11:50→21:07)
[2021-05-04 16:10] VITALS: BP 114/66
[2021-05-04] MEDS: DULoxetine HCL 30 MG CAPSULE PO SCH (20:26)
[2021-05-04] MEDS: ZOLPIDEM TARTRATE 10 MG TABLET PO PRN (20:28)
[2021-05-04] MEDS: MELATONIN 5 MG TABLET PO SCH ×2 (21:00→22:27)
[2021-05-05 00:18] VITALS: BP 117/76
[2021-05-05 06:12] VITALS: BP 125/89
[2021-05-05] MEDS: QUEtiapine FUMARATE 100 MG TABLET PO PRN ×2 (06:15→18:47)
[2021-05-05] MEDS: MAG HYDROX/AL HYDROX/SIMETH ES 30 ML SUSPENSION UDCUP PO PRN (06:58)
[2021-05-05 08:14] VITALS: BP_SYST 118; BP_SYST 129; BP_DIAS 85
[2021-05-05] MEDS: METHADONE HCL 10 MG TABLET PO SCH (08:39)
[2021-05-05] MEDS: GABAPENTIN 100 MG CAPSULE PO SCH ×3 (08:39→16:37)
[2021-05-05] MEDS: ACAMPROSATE CALCIUM 333 MG DR TABLET PO SCH ×3 (08:39→16:37)
[2021-05-05] MEDS: GABAPENTIN 400 MG CAPSULE PO SCH ×3 (08:40→16:38)
[2021-05-05] MEDS: OMEGA-3/DHA/EPA/FISH OIL 1,000 MG CAPSULE PO SCH (08:40)
[2021-05-05] MEDS: TRIHEXYPHENIDYL HCL 5 MG TABLET PO SCH ×3 (08:40→16:37)
[2021-05-05] MEDS: HALOPERIDOL 5 MG TABLET PO SCH ×5 (08:40→20:12)
[2021-05-05] MEDS: NICOTINE POLACRILEX 2 MG LOZENGE PO PRN ×4 (10:12→21:25)
[2021-05-05 16:11] VITALS: BP 104/68
[2021-05-05] MEDS: HydrOXYzine PAMOATE 50 MG CAPSULE PO PRN (17:10)
[2021-05-05] MEDS: ZOLPIDEM TARTRATE 10 MG TABLET PO PRN ×2 (20:11→22:09)
[2021-05-05] MEDS: DULoxetine HCL 30 MG CAPSULE PO SCH (20:11)
[2021-05-05] MEDS: MELATONIN 5 MG TABLET PO SCH (20:12)
[2021-05-06 00:53] VITALS: BP 100/61
[2021-05-06] MEDS: QUEtiapine FUMARATE 100 MG TABLET PO PRN ×4 (02:34→22:28)
[2021-05-06 08:13] VITALS: BP 122/82
[2021-05-06] MEDS: GABAPENTIN 400 MG CAPSULE PO SCH ×3 (08:26→16:41)
[2021-05-06] MEDS: OMEGA-3/DHA/EPA/FISH OIL 1,000 MG CAPSULE PO SCH (08:27)
[2021-05-06] MEDS: TRIHEXYPHENIDYL HCL 5 MG TABLET PO SCH ×3 (08:27→16:41)
[2021-05-06] MEDS: METHADONE HCL 10 MG TABLET PO SCH (08:27)
[2021-05-06] MEDS: HALOPERIDOL 5 MG TABLET PO SCH ×4 (08:27→21:00)
[2021-05-06] MEDS: GABAPENTIN 100 MG CAPSULE PO SCH ×3 (08:27→16:42)
[2021-05-06] MEDS: ACAMPROSATE CALCIUM 333 MG DR TABLET PO SCH ×3 (08:27→16:42)
[2021-05-06] MEDS: NICOTINE POLACRILEX 2 MG LOZENGE PO PRN ×4 (09:41→22:28)
[2021-05-06] MEDS: IBUPROFEN 600 MG TABLET PO PRN (09:42)
[2021-05-06 16:16] VITALS: BP 119/78
[2021-05-06] MEDS: MELATONIN 5 MG TABLET PO SCH (21:00)
[2021-05-06] MEDS: DULoxetine HCL 30 MG CAPSULE PO SCH (21:10)
[2021-05-06] MEDS: ZOLPIDEM TARTRATE 10 MG TABLET PO PRN (21:10)
[2021-05-07 00:07] VITALS: BP 110/71
[2021-05-07] MEDS: OMEGA-3/DHA/EPA/FISH OIL 1,000 MG CAPSULE PO SCH (08:26)
[2021-05-07] MEDS: TRIHEXYPHENIDYL HCL 5 MG TABLET PO SCH ×3 (08:26→16:28)
[2021-05-07] MEDS: METHADONE HCL 10 MG TABLET PO SCH (08:26)
[2021-05-07] MEDS: HALOPERIDOL 5 MG TABLET PO SCH ×4 (08:26→13:02)
[2021-05-07] MEDS: ACAMPROSATE CALCIUM 333 MG DR TABLET PO SCH ×3 (08:27→16:28)
[2021-05-07] MEDS: GABAPENTIN 100 MG CAPSULE PO SCH ×3 (08:27→16:28)
[2021-05-07] MEDS: GABAPENTIN 400 MG CAPSULE PO SCH ×3 (08:27→16:27)
[2021-05-07 08:36] VITALS: BP 125/80
[2021-05-07] MEDS: QUEtiapine FUMARATE 100 MG TABLET PO PRN ×2 (09:17→22:23)
[2021-05-07] MEDS: NICOTINE POLACRILEX 2 MG LOZENGE PO PRN ×5 (09:18→22:24)
[2021-05-07 16:12] VITALS: BP 133/85
[2021-05-07] MEDS: QUEtiapine FUMARATE 25 MG TABLET PO SCH (16:27)
[2021-05-07] MEDS: DULoxetine HCL 30 MG CAPSULE PO SCH (20:26)
[2021-05-07] MEDS: ZOLPIDEM TARTRATE 10 MG TABLET PO PRN (20:26)
[2021-05-07] MEDS ORDERED: QUEtiapine FUMARATE 200 MG TABLET PO SCH (21:00)
[2021-05-07] MEDS: HydrOXYzine PAMOATE 50 MG CAPSULE PO PRN (22:23)
[2021-05-08 00:29] VITALS: BP 114/78
[2021-05-08 08:24] VITALS: BP 116/74
[2021-05-08 08:32] LABS: COVID AG,FIA SOURCE NASOPHARYNGEAL
[2021-05-08] MEDS: METHADONE HCL 10 MG TABLET PO SCH (08:51)
[2021-05-08] MEDS: OMEGA-3/DHA/EPA/FISH OIL 1,000 MG CAPSULE PO SCH (08:52)
[2021-05-08] MEDS: GABAPENTIN 400 MG CAPSULE PO SCH ×3 (08:52→16:11)
[2021-05-08] MEDS: QUEtiapine FUMARATE 25 MG TABLET PO SCH ×2 (08:52→13:00)
[2021-05-08] MEDS: GABAPENTIN 100 MG CAPSULE PO SCH ×3 (08:52→16:11)
[2021-05-08] MEDS: TRIHEXYPHENIDYL HCL 5 MG TABLET PO SCH ×3 (08:52→16:11)
[2021-05-08] MEDS: ACAMPROSATE CALCIUM 333 MG DR TABLET PO SCH ×3 (08:53→16:11)
[2021-05-08] MEDS: NICOTINE POLACRILEX 2 MG LOZENGE PO PRN ×4 (10:16→20:04)
[2021-05-08] MEDS: QUEtiapine FUMARATE 100 MG TABLET PO PRN (12:32)
[2021-05-08 16:11] VITALS: BP 114/79
[2021-05-08] MEDS: IBUPROFEN 600 MG TABLET PO PRN (16:11)
[2021-05-08] MEDS: QUEtiapine FUMARATE 100 MG TABLET PO SCH (16:11)
[2021-05-08] MEDS: DULoxetine HCL 30 MG CAPSULE PO SCH (20:03)
[2021-05-08] MEDS: QUEtiapine FUMARATE 200 MG TABLET PO SCH (20:03)
[2021-05-08] MEDS: ZOLPIDEM TARTRATE 10 MG TABLET PO PRN (20:04)
[2021-05-09 01:00] VITALS: BP 126/79
[2021-05-09] MEDS: QUEtiapine FUMARATE 100 MG TABLET PO PRN (01:09)
[2021-05-09 08:20] VITALS: BP 118/84
[2021-05-09] MEDS: ACAMPROSATE CALCIUM 333 MG DR TABLET PO SCH ×3 (08:51→17:15)
[2021-05-09] MEDS: METHADONE HCL 10 MG TABLET PO SCH (08:51)
[2021-05-09] MEDS: TRIHEXYPHENIDYL HCL 5 MG TABLET PO SCH ×3 (08:51→17:15)
[2021-05-09] MEDS: OMEGA-3/DHA/EPA/FISH OIL 1,000 MG CAPSULE PO SCH (08:51)
[2021-05-09] MEDS: GABAPENTIN 400 MG CAPSULE PO SCH ×3 (08:51→17:14)
[2021-05-09] MEDS: QUEtiapine FUMARATE 100 MG TABLET PO SCH ×3 (08:52→17:15)
[2021-05-09] MEDS: GABAPENTIN 100 MG CAPSULE PO SCH ×3 (08:52→17:14)
[2021-05-09] MEDS: NICOTINE POLACRILEX 2 MG LOZENGE PO PRN ×2 (10:12→19:37)
[2021-05-09] MEDS: IBUPROFEN 600 MG TABLET PO PRN (10:18)
[2021-05-09 16:36] VITALS: BP 117/78
[2021-05-09] MEDS: QUEtiapine FUMARATE 200 MG TABLET PO SCH (20:28)
[2021-05-09] MEDS: DULoxetine HCL 30 MG CAPSULE PO SCH (20:29)
[2021-05-09] MEDS: ZOLPIDEM TARTRATE 10 MG TABLET PO PRN (20:46)
[2021-05-10 01:00] VITALS: BP 133/86
[2021-05-10] MEDS: NICOTINE POLACRILEX 2 MG LOZENGE PO PRN ×3 (06:26→20:15)
[2021-05-10] MEDS: TRIHEXYPHENIDYL HCL 5 MG TABLET PO SCH ×3 (08:18→16:11)
[2021-05-10] MEDS: GABAPENTIN 400 MG CAPSULE PO SCH ×3 (08:18→16:12)
[2021-05-10] MEDS: ACAMPROSATE CALCIUM 333 MG DR TABLET PO SCH ×3 (08:18→16:12)
[2021-05-10] MEDS: OMEGA-3/DHA/EPA/FISH OIL 1,000 MG CAPSULE PO SCH (08:18)
[2021-05-10] MEDS: QUEtiapine FUMARATE 100 MG TABLET PO SCH ×3 (08:19→16:12)
[2021-05-10] MEDS: GABAPENTIN 100 MG CAPSULE PO SCH ×3 (08:19→16:12)
[2021-05-10] MEDS: METHADONE HCL 10 MG TABLET PO SCH (08:19)
[2021-05-10 08:30] VITALS: BP 122/78
[2021-05-10] MEDS: HydrOXYzine PAMOATE 50 MG CAPSULE PO PRN (09:36)
[2021-05-10 16:18] VITALS: BP 111/73
[2021-05-10] MEDS: DULoxetine HCL 30 MG CAPSULE PO SCH (20:15)
[2021-05-10] MEDS: QUEtiapine FUMARATE 200 MG TABLET PO SCH (20:15)
[2021-05-10] MEDS: ZOLPIDEM TARTRATE 10 MG TABLET PO PRN (21:03)
[2021-05-11 01:33] VITALS: BP 111/73
[2021-05-11] MEDS: QUEtiapine FUMARATE 100 MG TABLET PO PRN ×2 (02:23→10:30)
[2021-05-11] MEDS: HydrOXYzine PAMOATE 50 MG CAPSULE PO PRN (06:46)
[2021-05-11 06:47] VITALS: BP 123/81
[2021-05-11] MEDS: METHADONE HCL 10 MG TABLET PO SCH (08:17)
[2021-05-11] MEDS: TRIHEXYPHENIDYL HCL 5 MG TABLET PO SCH ×3 (08:17→16:36)
[2021-05-11] MEDS: GABAPENTIN 400 MG CAPSULE PO SCH ×3 (08:17→16:36)
[2021-05-11] MEDS: ACAMPROSATE CALCIUM 333 MG DR TABLET PO SCH ×3 (08:17→16:36)
[2021-05-11] MEDS: GABAPENTIN 100 MG CAPSULE PO SCH ×2 (08:17→13:18)
[2021-05-11] MEDS: QUEtiapine FUMARATE 100 MG TABLET PO SCH ×3 (08:17→16:36)
[2021-05-11] MEDS: OMEGA-3/DHA/EPA/FISH OIL 1,000 MG CAPSULE PO SCH (08:17)
[2021-05-11 08:18] VITALS: BP 110/78
[2021-05-11] MEDS: NICOTINE POLACRILEX 2 MG LOZENGE PO PRN ×3 (09:19→19:12)
[2021-05-11] MEDS: IBUPROFEN 600 MG TABLET PO PRN (09:19)
[2021-05-11 16:25] VITALS: BP 106/69
[2021-05-11] MEDS: QUEtiapine FUMARATE 200 MG TABLET PO SCH (20:23)
[2021-05-11] MEDS: ZOLPIDEM TARTRATE 10 MG TABLET PO PRN (20:23)
[2021-05-11] MEDS ORDERED: DULoxetine HCL 60 MG CAPSULE PO SCH (21:00)
[2021-05-12 01:43] VITALS: BP 108/73
[2021-05-12] MEDS: ACAMPROSATE CALCIUM 333 MG DR TABLET PO SCH (08:05)
[2021-05-12] MEDS: TRIHEXYPHENIDYL HCL 5 MG TABLET PO SCH (08:05)
[2021-05-12] MEDS: METHADONE HCL 10 MG TABLET PO SCH (08:06)
[2021-05-12] MEDS: GABAPENTIN 400 MG CAPSULE PO SCH (08:06)
[2021-05-12] MEDS: NICOTINE POLACRILEX 2 MG LOZENGE PO PRN (08:06)
[2021-05-12] MEDS: QUEtiapine FUMARATE 100 MG TABLET PO SCH (08:06)
[2021-05-12] MEDS: OMEGA-3/DHA/EPA/FISH OIL 1,000 MG CAPSULE PO SCH (08:06)
[2021-05-12 08:33] VITALS: BP 128/84
[2021-05-12] MEDS ORDERED: QUET100T34 PO (08:41)
[2021-05-12] MEDS ORDERED: TRIH5TAB3 PO (08:41)
[2021-05-12] MEDS ORDERED: DULO60CA45 PO (08:41)
[2021-05-12] MEDS ORDERED: GABA-1201 PO (08:41)
[2021-05-12] MEDS ORDERED: OMEG-135 PO (08:41)
[2021-05-12] MEDS ORDERED: ACAM333T7 PO (08:41)
[2021-05-12] MEDS ORDERED: QUET200T30 PO (08:41)
[2021-05-12] MEDS: HydrOXYzine PAMOATE 50 MG CAPSULE PO PRN (09:30)
[2021-05-12] MEDS: ACETAMINOPHEN 325 MG TABLET PO PRN (09:30)
[2021-05-12] MEDS: QUEtiapine FUMARATE 100 MG TABLET PO PRN (10:33)
== END 2021-05-12 13:00 | disposition home or self-care (01) | DRG 750 ==
LOC: B2S 19:26
PROVIDERS: ADMIT Psychiatry & Neurology Psychiatry; ATTEND Psychiatry & Neurology Psychiatry
DX: F25.0 Schizoaffective disorder, bipolar type (principal); R45.851 Suicidal ideations; Z59.00 Homelessness unspecified; F41.9 Anxiety disorder, unspecified; J44.9 Chronic obstructive pulmonary disease, unspecified; F12.90 Cannabis use, unspecified, uncomplicated; F31.9 Bipolar disorder, unspecified; T43.4X6A Underdosing of butyrophenone and thiothixene neuroleptics, initial encounter; F11.20 Opioid dependence, uncomplicated; Z20.822 Contact with and (suspected) exposure to COVID-19; Y92.89 Other specified places as the place of occurrence of the external cause; Z55.9 Problems related to education and literacy, unspecified; Z63.9 Problem related to primary support group, unspecified; Z65.3 Problems related to other legal circumstances; Z87.891 Personal history of nicotine dependence; Z79.899 Other long term (current) drug therapy
CPT/HCPCS: 80053; 80061; 80173; 80307; 81003; 82962; 83036; 84439; 84443; 85025; 86592; 87081; Q9967

== ENCOUNTER 2021-04-30 10:35 | Emergency (ER) | payer MEDICAID, OTHER ==
[~2021-04-30] VITALS: Ht 177.8 cm; Wt 68.2 kg
[~2021-04-30 10:35] MED LIST: CLON0.1T2 PO; GABA-1181 PO; QUET25TA PO; SERT-162 PO
[2021-04-30] MEDS ORDERED: LORazepam 1 MG TABLET PO ONE (10:45)
[2021-04-30 14:42] VITALS: BP 120/80
== END 2021-04-30 14:45 | disposition home or self-care (01) ==
LOC: EMS 10:35
DX: F41.9 Anxiety disorder, unspecified (principal); T43.4X5A Adverse effect of butyrophenone and thiothixene neuroleptics, initial encounter; F17.210 Nicotine dependence, cigarettes, uncomplicated; F11.90 Opioid use, unspecified, uncomplicated; Y92.89 Other specified places as the place of occurrence of the external cause
CPT/HCPCS: 99283